=== PATIENT | male | born 1995 | race Caucasian/White ===

== ENCOUNTER 2017-05-02 14:36 | Inpatient (IN) | payer OTHER ==
[~2017-05-02] VITALS: Ht 180.3 cm; Wt 60.7 kg
[2017-05-02] MEDS ORDERED: MULT-513 PO (15:19)
[2017-05-02] MEDS ORDERED: SERT-234 PO (15:19)
[2017-05-02 15:23] LABS: BASO % 0.8 %; BASO ABS # 0.05 K/uL (0-0.2); EOS % 2.5 %; EOS ABS # 0.15 K/uL (0-0.5); HEMATOCRIT 43.7 % (42-52); HEMOGLOBIN 15.7 g/dL (14.0-18.0); IG# 0.01 K/uL (0.00-0.02); LYMPH % 30.7 %; LYMPH ABS # 1.85 K/uL (1.2-3.4); MEAN CELL VOLUME 87.1 fL (80-100); MEAN CORPUSCULAR HEMOGLOBIN 31.3 pg (25-34); MEAN CORPUSCULAR HGB CONC 35.9 g/dl (32-36); MEAN PLATELET VOLUME 9.3 fL (7.4-10.4); MONO % 4.7 %; MONO ABS # 0.28 K/uL (0.11-0.59); NEUT % 61.1 %; NEUT ABS # 3.68 K/uL (1.4-6.5); PLATELET COUNT 208 K/uL (130-400); RED CELL DISTRIBUTION WIDTH CV 13.4 % (11.5-14.5); RED CELL DISTRIBUTION WIDTH SD 42.7 fL (36.4-46.3); WHITE BLOOD COUNT 6.02 K/uL (4.8-10.8)
[2017-05-02 15:39] LABS: ALBUMIN 4.4 gm/dl (3.4-5.0); ALT/SGPT 16 U/L (12-78); BLOOD UREA NITROGEN 13 mg/dl (7-18); CALCIUM 8.9 mg/dl (8.5-10.1); CARBON DIOXIDE 29 mmol/L (21-32); CREATININE 0.92 mg/dl (0.60-1.40); GLUCOSE 91 mg/dl (70-99); SODIUM 139 mmol/L (136-145)
[2017-05-02 15:50] LABS: ALKALINE PHOSPHATASE 52 U/L (45-117); AST/SGOT 12 U/L (15-37); TOTAL PROTEIN 7.4 gm/dl (6.4-8.2)
--- NOTE | 2017-05-02 19:10 | EMERGENCY ROOM VISIT NOTE ---
History Report prepared by Henry: Dory Bryan Under the Supervision of: Kori LiO. First contact with patient: 14:46 Chief Complaint: MENTAL HEALTH EVALUATION Stated Complaint: SUICIDAL History of Present Illness The patient is a 22 year old male who presents to the Emergency Room for a mental health evaluation. The patient has a history of depression and anxiety. He takes Zoloft daily and Ativan PRN. Today he woke up this morning and was feeling very suicidal. He states that nothing specific triggered these suicidal thoughts. He does not have one specific plan but admits to thinking of multiple different ways of killing himself. He thought of driving off the road or using steak knives to harm himself. The patient has had suicidal thoughts in the past. He has been admitted as an inpatient in [facility] for psychiatric reasons. He denies any HI. He reports a mild headache for the past couple of weeks but denies any other physical complaints at this time. Pt denies change in vision, fevers, chest pain, shortness of breath, nausea, vomiting, diarrhea, pain with urination, and melena. Source of History: patient Onset: this morning Position: other (global) Quality: other (suicidal) Timing: constant Associated Symptoms: + headache, No fevers, No chest pain, No SOB, No nausea , No vomiting, No melena, No diarrhea, No urinary symptoms Note: Pt admits to SI. Pt denies HI. Review of Systems See HPI for pertinent positives & negatives. A total of 10 systems reviewed and were otherwise negative. Past Medical & Surgical Medical Problems: (1) Anxiety (2) Depression Family History No pertinent history stated. Social History Smoking Status: Former Smoker Marital Status: single Housing Status: lives with roommate Occupation Status: [employer] Current/Historical Medications Scheduled Multivitamins/Minerals (Mvi With Minerals), 1 TAB PO DAILY Sertraline (Zoloft), 150 MG PO QPM Allergies Coded Allergies: No Known Allergies (Unverified , 05/02/17) Physical Exam Vital Signs Date Time Temp Pulse Resp B/P (MAP) Pulse Ox O2 Delivery O2 Flow Rate FiO2 05/02/17 17:10 82 18 114/63 97 Room Air 05/02/17 14:42 36.8 88 17 143/95 94 Room Air Physical Exam GENERAL: Sitting up in bed, alert, well appearing, well nourished, no distress, non-toxic EYE EXAM: normal conjunctiva. OROPHARYNX: no exudate, no erythema, lips, buccal mucosa, and tongue normal and mucous membranes are moist NECK: supple, no nuchal rigidity, no adenopathy, non-tender LUNGS: Clear to auscultation. Normal chest wall mechanics HEART: no murmurs, S1 normal and S2 normal ABDOMEN: abdomen soft, non-tender, normo-active bowel sounds, no masses, no rebound or guarding. SKIN: no rashes and no bruising UPPER EXTREMITIES: upper extremities are grossly normal. LOWER EXTREMITIES: No pitting edema. NEURO EXAM: Normal sensorium, cranial nerves II-XII grossly intact, normal speech, no gross weakness of arms, no gross weakness of legs. PSYCH: Admits to suicidal ideation with a plan. Medical Decision & Procedures Laboratory Results 05/02/17 14:58 Red Blood Count 5.02, Mean Corpuscular Volume 87.1, Mean Corpuscular Hemoglobin 31.3, Mean Corpuscular Hemoglobin Concent 35.9, Mean Platelet Volume 9.3, Neutrophils (%) (Auto) 61.1, Lymphocytes (%) (Auto) 30.7, Monocytes (%) (Auto) 4.7, Eosinophils (%) (Auto) 2.5, Basophils (%) (Auto) 0.8, Neutrophils # (Auto) 3.68, Lymphocytes # (Auto) 1.85, Monocytes # (Auto) 0.28, Eosinophils # (Auto) 0.15, Basophils # (Auto) 0.05 05/02/17 14:58 Test 05/02/17 14:58 05/02/17 15:10 White Blood Count 6.02 K/uL (4.8-10.8) Red Blood Count 5.02 M/uL (4.7-6.1) Hemoglobin 15.7 g/dL (14.0-18.0) Hematocrit 43.7 % (42-52) Mean Corpuscular Volume 87.1 fL (80-100) Mean Corpuscular Hemoglobin 31.3 pg (25-34) Mean Corpuscular Hemoglobin Concent 35.9 g/dl (32-36) Platelet Count 208 K/uL (130-400) Mean Platelet Volume 9.3 fL (7.4-10.4) Neutrophils (%) (Auto) 61.1 % Lymphocytes (%) (Auto) 30.7 % Monocytes (%) (Auto) 4.7 % Eosinophils (%) (Auto) 2.5 % Basophils (%) (Auto) 0.8 % Neutrophils # (Auto) 3.68 K/uL (1.4-6.5) Lymphocytes # (Auto) 1.85 K/uL (1.2-3.4) Monocytes # (Auto) 0.28 K/uL (0.11-0.59) Eosinophils # (Auto) 0.15 K/uL (0-0.5) Basophils # (Auto) 0.05 K/uL (0-0.2) RDW Standard Deviation 42.7 fL (36.4-46.3) RDW Coefficient of Variation 13.4 % (11.5-14.5) Immature Granulocyte % (Auto) 0.2 % Immature Granulocyte # (Auto) 0.01 K/uL (0.00-0.02) Anion Gap 6.0 mmol/L (3-11) Est Creatinine Clear Calc Drug Dose 110.4 ml/min Estimated GFR () 136.4 Estimated GFR (Non- 117.6 BUN/Creatinine Ratio 13.9 (10-20) Calcium Level 8.9 mg/dl (8.5-10.1) Total Bilirubin 0.4 mg/dl (0.2-1) Direct Bilirubin < 0.1 mg/dl (0-0.2) Aspartate Amino Transf (AST/SGOT) 12 U/L (15-37) Alanine Aminotransferase (ALT/SGPT) 16 U/L (12-78) Alkaline Phosphatase 52 U/L (45-117) Total Protein 7.4 gm/dl (6.4-8.2) Albumin 4.4 gm/dl (3.4-5.0) Thyroid Stimulating Hormone (TSH) 0.910 uIu/ml (0.300-4.500) Ethyl Alcohol mg/dL < 3.0 mg/dl (0-3) Urine Color YELLOW Urine Appearance CLEAR (CLEAR) Urine pH 7.5 (4.5-7.5) Urine Specific [place] 1.024 (1.000-1.030) Urine Protein NEG (NEG) Urine Glucose (UA) NEG (NEG) Urine Ketones NEG (NEG) Urine Occult Blood NEG (NEG) Urine Nitrite NEG (NEG) Urine Bilirubin NEG (NEG) Urine Urobilinogen NEG (NEG) Urine Leukocyte Esterase NEG (NEG) Urine Opiates Screen NEG (NEG) Urine Methadone, Qualitative NEG (NEG) Urine Barbiturates NEG (NEG) Urine Phencyclidine (PCP) Level NEG (NEG) Ur Amphetamine/Methamphetamine NEG (NEG) MDMA (Ecstasy) Screen NEG (NEG) Urine Benzodiazepines Screen NEG (NEG) Urine Cocaine Metabolite NEG (NEG) Urine Marijuana (THC) POS (NEG) Laboratory results per my review. ED Course ED COURSE: Vital signs were reviewed and showed hypertensive. The patients medical record was reviewed The above diagnostic studies were performed and reviewed. ED treatments and interventions as stated above. 1446: The patient was evaluated in room A4B. A complete history and physical examination was performed. 1455: The patient was moved to room A8. 1930: The patient has been accepted to [facility] for further management. Medical Decision Differential diagnosis: Etiologies such as mood disorder, infection, hypoglycemia, electrolyte abnormalities, cardiac sources, intracerebral event, toxicologic, neurologic, as well as others were entertained. Patient is a 22-year-old male with a history of severe depression who presents the ER with suicidal ideations and a plan to kill himself either by driving in the traffic or cutting his wrists. He has no other complaints at this time with the exception of a mild headache. CBC along with BMP, LFTs, bilirubin and TSH was unremarkable. Tox was positive for marijuana. Alcohol negative. UA negative. Patient was evaluated by our psychiatric infant childcare provider in 3 S. Patient will be admitted to S. on a 201. Medication Reconcilliation Current Medication List: was personally reviewed by me Blood Pressure Screening Patient's blood pressure: Elevated blood pressure Blood pressure disposition: Elevated BP felt to be situational Impression Primary Impression: Mood disorder Additional Impression: Suicidal ideation Scribe Attestation The scribe's documentation has been prepared under my direction and personally reviewed by me in its entirety. I confirm that the note above accurately reflects all work, treatment, procedures, and medical decision making performed by me. Departure Information Dispostion Mental Health Acute Care Referrals No Doctor, Assigned (PCP) Forms HOME CARE DOCUMENTATION FORM, IMPORTANT VISIT INFORMATION Patient Instructions My [facility] Problem Qualifiers
[2017-05-02] MEDS ORDERED: NURSING VERBAL MED ORDER ONE (20:45)
[2017-05-02] MEDS ORDERED: BISMUTH SUBSALICYLATE PER ML OMNICELL CHARGE PO PRN (21:00)
[2017-05-02] MEDS ORDERED: ACETAMINOPHEN 325 MG TAB PO PRN (21:00)
[2017-05-02] MEDS ORDERED: SODIUM CHLORIDE 0.65% NA SOLN 45 ML (OCEAN) PRN (21:00)
[2017-05-02] MEDS ORDERED: ALUMINUM/MAGNESIUM SUSP 30 ML UDC PO PRN (21:00)
[2017-05-02] MEDS ORDERED: MAGNESIUM HYDROXIDE SUSP 30 ML UDC PO PRN (21:00)
[2017-05-02] MEDS ORDERED: hydrOXYzine HCL 25 MG TAB PO PRN ×2 (21:00)
[2017-05-02 21:24] VITALS: O2SAT 97
[2017-05-03 00:32] VITALS: BP 114/63; PULSE 82; TEMP 36.8; Ht 180.3 cm; Wt 60.7 kg
[2017-05-03 06:35] VITALS: BP_SYST 100; BP_SYST 108; BP_DIAS 65; BP_DIAS 74; PULSE 66; PULSE 85; TEMP 36.4
[2017-05-03] MEDS ORDERED: SERTRALINE HCL 100 MG TAB PO SCH (09:00)
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
[2017-05-03] MEDS ORDERED: VENLAFAXINE HCL XR 37.5 MG CAPXR PO ONE (11:58)
[2017-05-04 06:52] VITALS: BP_SYST 104; BP_SYST 111; BP_DIAS 63; BP_DIAS 72; PULSE 64; PULSE 94; TEMP 36.5
[2017-05-04] MEDS: VENLAFAXINE HCL XR 37.5 MG CAPXR PO SCH (08:05)
[2017-05-04] MEDS: SERTRALINE HCL 50 MG TAB PO SCH (08:05)
--- NOTE | 2017-05-04 11:15 | Psychiatric Progress Notes ---
Progress Note Date of Service May 04, 2017. 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 He who currently lives in [place] with roommate. Chief Complaint "Looking up". Subjective Patient was seen & assessed interval progress reviewed with Nursing. Staff report patient had a visit from a friend last evening, attended community meeting, and has a family meeting scheduled with his mother this afternoon. His mother reported to staff that he has been depressed off and on for years. On my assessment, the patient states that mood has improved slightly since admission, and he thinks it is helping to be around other people and to talk about his issues. He states that his tendency is to isolate when he is feeling depressed, that he does not usually discuss his mood with anyone. He continues to have suicidal thoughts, but describes them as fleeting, "they just pop into my head," and feels better able to dismiss them or distract himself. He thinks it has been helpful to "put into words" what he has been struggling with over the past several months, noting that he has been taking poor care of himself all semester, not eating until 6:00 at night, and struggling to get out of bed, shower and get dressed. This morning he woke up and "did not want to go right back to sleep, which is a first." He notes that yesterday was very difficult, "it was really hard, felt really alone," but is feeling slightly more optimistic today. Appetite has also improved slightly. Sleep Information Total Hours of Sleep: 7.25 Meal Information Percent of Breakfast Consumed: 50 Percent of Lunch Consumed: 50 Percent of Dinner Consumed: 50 Mental Status Exam During interview pt is: alert and oriented, cooperative Appearance: appropriately dressed, appropriately groomed (Thin) Eye contact is: good Motor behavior is: steady gait & station, no abnormal motor movements Speech: normal in rate, rhythm & volume Affect: mood congruent, depressed, constricted Mood is: depressed (but improved from yesterday) Thought process: goal directed Thought content: reality based without delusions Suicidal thought are: present, Plan: present, Intent: denied Homicidal thoughts are: denied Hallucinations: denies auditory, denies visual Cognition: memory grossly intact, attention grossly intact, language grossly intact Intelligence estimated to be: consistent with level of education Insight: fair Judgement: fair Impression 22-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 He is admitted with worsening depression and suicidal ideation with multiple plans. He is being cross tapered to venlafaxine XR, and would benefit from outpatient follow- up with a psychiatrist and therapist. He requires inpatient treatment at this time due to the severity of his symptoms and risk for suicide if discharged. Plan (1) Depression 05/03 -Reviewed diagnoses and treatment options. Recommended trial of venlafaxine XR , as he has failed 2 SSRI trials (presuming his first antidepressant trial was in [place]). Reviewed the risks, benefits, and side effects, and recommendations to cross taper from sertraline to venlafaxine, and he agreed. Sertraline dose was decreased to 100 mg daily this morning, and we will taper off this over the next several days, while starting venlafaxine XR 37.5 mg daily. -Offer hydroxyzine as needed for sleep or anxiety. -Participation in unit groups and therapy. Work on healthy coping skills and a discharge safety plan. -Reviewed recommendations to abstain from psychoactive substance use including cannabis at least until mood has stabilized, and the risks of ongoing use. -Recommend family meeting with the social media content manager. -Coordinate care with PCP and send records. Refer for outpatient follow-up with a therapist and psychiatrist. -Every 15 minute checks for safety. 05/04 - Continue cross taper as above. - Family meeting with mother this afternoon. - Referred to [facility] for aftercare. (2) Anxiety Has symptoms of both generalized anxiety and panic, which appear to be secondary to his depression. Work on behavioral techniques for managing anxiety. Cross-taper from sertraline to venlafaxine XR as above. Discharge / Aftercare Planning Primary Care Physician: Name: PEDRO Rock Psychiatrist: Name: FAISAL Appointment Notes: [address] [place] [address] Therapist: Name: FAISAL Appointment Notes: [address] [place] [address] [place] Auditor: Name: Tiffanie Umanzor CAPS Appointment Notes: [facility] Visit Code E&M Code: 81212 Inventory Assets Strengths: intelligence, supportive family Needs: mental health providers, medication adjustments Risk Factors Assessment Male: Yes : Yes /single/: Yes Higher / Fall in social status: No Health problems: No Mental Health Diagnoses: Yes Substance use disorders: Yes Previous attempt: Yes Previous attempt;highly lethal: Yes Family history of suicide: No Previous psychiatric stay: No Hopelessness: Yes Smoker: No Protective Factors Assessment Confucianism beliefs: No : No Responsible for young children: No Employed: No Stable relationships: Yes Supportive family: Yes Good rapport with provider: Yes Data Vital Signs Last 24 Hrs: Date Time Temp Pulse Resp B/P (MAP) Pulse Ox O2 Delivery O2 Flow Rate FiO2 05/04/17 06:52 36.5 64 16 104/63 94 111/72 Meds Administered Last 24 Hrs: Meds Administered (Past 24Hrs) Medications (Trade) Dose Ordered Sig/Edvin Route Start Time Stop Time Status Last Admin Dose Admin Sertraline HCl (Zoloft Tab) 100 mg DAILY PO 05/03/17 09:00 05/03/17 12:00 DC 05/03/17 08:49 100 MG Sertraline HCl (Zoloft Tab) 50 mg Taper QAM PO 05/04/17 09:00 05/08/17 08:59 05/04/17 08:05 50 MG Venlafaxine HCl (effeXOR EXTENDED REL CAP) 37.5 mg Taper QAM PO 05/04/17 09:00 06/02/17 08:59 05/04/17 08:05 37.5 MG Venlafaxine HCl (effeXOR EXTENDED REL CAP) 37.5 mg 1158 ONCE PO 05/03/17 11:58 05/03/17 12:07 DC 05/03/17 12:42 37.5 MG Problem Qualifiers (1) Depression: Depression Type: major depressive disorder Major depression recurrence: recurrent Active/Remission status: currently active Major depression episode severity: severe Psychotic features: without psychotic features Qualified Codes: F33.2 - Major depressive disorder, recurrent severe without psychotic features
[2017-05-05 06:48] VITALS: BP_SYST 102; BP_SYST 99; BP_DIAS 61; BP_DIAS 67; PULSE 64; PULSE 71; TEMP 36.4
[2017-05-05] MEDS: VENLAFAXINE HCL XR 37.5 MG CAPXR PO SCH (08:39)
[2017-05-05] MEDS: SERTRALINE HCL 50 MG TAB PO SCH (08:39)
--- NOTE | 2017-05-05 10:24 | Psych Management Progress Note ---
Psychiatry Miscellaneous Date of Service: May 05, 2017. Patient seen, MS assessed. Rates mood as 7/10 and hopeful. Encouraged cooperation with care and treatment plan as outlined by allied health prescriber. He feels he is nearing readiness for discharge, discussed working on safety plan and his plan to structure his day as staff report he still describes fleeting suicidal thoughts last pm.
--- NOTE | 2017-05-05 10:59 | Psychiatric Progress Notes ---
Progress Note Date of Service May 05, 2017. 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 He who currently lives in [place] with roommate. Chief Complaint "I think I'm doing a lot better than when I first got here". Subjective Patient was seen & assessed interval progress reviewed with Treatment Team. Staff reports the patient had a family meeting with mother yesterday which went well. Pt and mother both agree that current mood symptoms are likely situation and related to patient's graduation. Pt is reported to have emailed his professors yesterday to determine if his final semester is salvageable. Pt was seen today to assess progress since admission. Pt states he has noticed a difference and feels that his is improving. Pt states, "being here has given me a lot of perspective, I knew I wasn't functioning, but just didn't care." Pt was able to clarify reports of ongoing SI and describes them as "retrospective SI" stating he thinks back to previous suicidal thoughts on occasion, but is able to dismiss them. Pt states he has completed his safety plan and is planning to work on a schedule so he can better plan his weeks with regard to completing school work and keeping up with his apartment. Pt is anxious for discharge, but is understanding of need to continue to monitor during medication taper and to ensure that his improvement is able to be maintained. Pt denies SI today. He denies other concerns or needs. Review of Systems Psych: denies symptoms other than stated above Constitutional: denied Cardiovascular: denied GI: denied Neurologic: denied Remainder of 10 body systems also reviewed and denied other than noted above. Sleep Information Total Hours of Sleep: 7.00 Meal Information Percent of Breakfast Consumed: 100 Percent of Lunch Consumed: 100 Percent of Dinner Consumed: 100 Mental Status Exam During interview pt is: alert and oriented, cooperative Appearance: appropriately dressed, appropriately groomed Eye contact is: good Motor behavior is: steady gait & station, no abnormal motor movements Speech: normal in rate, rhythm & volume Affect: mood congruent, blunted (but less depressed) Mood is: other ("better" and "I'm more positive") Thought process: goal directed, clear, coherent Thought content: reality based without delusions Suicidal thought are: denied ("retrospective SI"), Plan: present, Intent: denied Homicidal thoughts are: denied Hallucinations: denies auditory, denies visual Cognition: memory grossly intact, attention grossly intact, language grossly intact Intelligence estimated to be: consistent with level of education Insight: fair Judgement: fair Impression Pt has noticed improvement in mood and outlook in the last few days. He denies side effects from taper from sertraline to venlafaxine. Pt feels more positive and has been setting goals for discharge. Safety plan is completed and reviewed. Discharge planned for Monday, but patient interested in leaving sooner. Understands need to monitor to ensure stability of improvement and tolerating new medication. Current SI denied, describes fleeting thoughts of "retrospective suicidal thoughts" in which he thinks back to his feelings prior to admission. States he can easily dismiss. He requires inpatient treatment at this time due to the severity of his symptoms and risk for suicide if discharged. Plan (1) Depression 05/03 -Reviewed diagnoses and treatment options. Recommended trial of venlafaxine XR , as he has failed 2 SSRI trials (presuming his first antidepressant trial was in SSRI). Reviewed the risks, benefits, and side effects, and recommendations to cross taper from sertraline to venlafaxine, and he agreed. Sertraline dose was decreased to 100 mg daily this morning, and we will taper off this over the next several days, while starting venlafaxine XR 37.5 mg daily. -Offer hydroxyzine as needed for sleep or anxiety. -Participation in unit groups and therapy. Work on healthy coping skills and a discharge safety plan. -Reviewed recommendations to abstain from psychoactive substance use including cannabis at least until mood has stabilized, and the risks of ongoing use. -Recommend family meeting with the social work assistant. -Coordinate care with PCP and send records. Refer for outpatient follow-up with a therapist and psychiatrist. -Every 15 minute checks for safety. 05/04 - Continue cross taper as above. - Family meeting with mother this afternoon. - Referred to [facility] for aftercare. 05/05 - Continue cross taper - Good family meeting with mother - Safety plan completed and reviewed (2) Anxiety Has symptoms of both generalized anxiety and panic, which appear to be secondary to his depression. Work on behavioral techniques for managing anxiety. Cross-taper from sertraline to venlafaxine XR as above. Discharge / Aftercare Planning Primary Care Physician: Name: PEDRO Rock Psychiatrist: Name: FAISAL Appointment Notes: [facility] Therapist: Name: FAISAL Appointment Notes: [facility] Project Officer: Name: Tiffanie Manjarrez - FAISAL Appointment Notes: [facility] Other: Name of Appointment #1: [facility] Date of Appointment #1: May 10, 2017 Time of Appointment #1: 11:00 a.m. Appointment #1 Notes: [address] [place] [address] Visit Code E&M Code: 09328 Inventory Assets Strengths: intelligence, supportive family Needs: mental health providers, medication adjustments Risk Factors Assessment Male: Yes : Yes /single/: Yes Higher / Fall in social status: No Health problems: No Mental Health Diagnoses: Yes Substance use disorders: Yes Previous attempt: Yes Previous attempt;highly lethal: Yes Family history of suicide: No Previous psychiatric stay: No Hopelessness: Yes Smoker: No Protective Factors Assessment Zoroastrianism beliefs: No : No Responsible for young children: No Employed: No Stable relationships: Yes Supportive family: Yes Good rapport with provider: Yes Data Vital Signs Last 24 Hrs: Date Time Temp Pulse Resp B/P (MAP) Pulse Ox O2 Delivery O2 Flow Rate FiO2 05/05/17 06:48 36.4 64 16 102/67 71 99/61 Meds Administered Last 24 Hrs: Meds Administered (Past 24Hrs) Medications (Trade) Dose Ordered Sig/Edvin Route Start Time Stop Time Status Last Admin Dose Admin Sertraline HCl (Zoloft Tab) 50 mg Taper QAM PO 05/04/17 09:00 05/08/17 08:59 05/05/17 08:39 50 MG Venlafaxine HCl (effeXOR EXTENDED REL CAP) 75 mg Taper QAM PO 05/04/17 09:00 06/02/17 08:59 05/05/17 08:39 75 MG Venlafaxine HCl (effeXOR EXTENDED REL CAP) 37.5 mg 1158 ONCE PO 05/03/17 11:58 05/03/17 12:07 DC 05/03/17 12:42 37.5 MG Problem Qualifiers (1) Depression: Depression Type: major depressive disorder Major depression recurrence: recurrent Active/Remission status: currently active Major depression episode severity: severe Psychotic features: without psychotic features Qualified Codes: F33.2 - Major depressive disorder, recurrent severe without psychotic features
[2017-05-06 06:25] VITALS: BP_SYST 121; BP_SYST 124; BP_DIAS 84; BP_DIAS 86; PULSE 67; PULSE 76; TEMP 36.5
[2017-05-06] MEDS: VENLAFAXINE HCL XR 37.5 MG CAPXR PO SCH (08:44)
[2017-05-06] MEDS: SERTRALINE HCL 50 MG TAB PO SCH (08:44)
[2017-05-06] MEDS ORDERED: VENLAFAXINE HCL XR 150 MG CAPXR PO STA (10:33)
[2017-05-06] MEDS ORDERED: VENLAFAXINE HCL XR 37.5 MG CAPXR PO STA (10:48)
--- NOTE | 2017-05-06 10:56 | Psychiatric Progress Notes ---
Progress Note Date of Service May 06, 2017. 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 He who currently lives in [place] with roommate. Chief Complaint "It going better.". Subjective Patient was seen & assessed interval progress reviewed with Treatment Team. The patient says that he has been thinking a lot about what is different from prior to admission and he says that he now has "regained a sense of care about myself". Prior to admission, he knew what he had to do, but was too depressed to motivate himself to those things. He now feels the motivation to get home, clean up his room and return to classes. He remains hopeful that he will be able to make up enough work to graduate this semester. He denies any further SI , denies side effects to meds. He feels like he is ready to leave and is asking how soon that can happen as he has a [employer] meeting Monday that he would like to attend. Review of Systems Constitutional: No fever, No chills, No sweats, No weight loss, No weakness, No fatigue, No problem reported ENT: No hearing loss, No unusual epistaxis, No nasal symptoms, No sore throat, No tinnitus, No dental problems, No trouble swallowing, No problem reported Respiratory: No cough, No sputum, No wheezing, No shortness of breath, No dyspnea on exertion, No dyspnea at rest, No hemoptysis, No problem reported Cardiovascular: No chest pain, No orthopnea, No PND, No edema, No claudication , No palpitations, No problem reported Abdomen: No pain, No nausea, No vomiting, No diarrhea, No constipation, No GI bleeding, No problem reported Musculoskeletal: No joint pain, No muscle pain, No swelling, No calf pain, No problem reported Neurologic: No memory loss, No paralysis, No weakness, No numbness/tingling, No vertigo, No balance problems, No problem reported Psychiatric: No depression symptoms, No anhedonism, No anxiety, No insomnia, No substance abuse, No problem reported Integumentary: No rash, No itch, No new/changing skin lesions, No color change , No bleeding, No problem reported Sleep Information Total Hours of Sleep: 6.25 Meal Information Percent of Breakfast Consumed: 100 Percent of Lunch Consumed: 100 Percent of Dinner Consumed: 100 Mental Status Exam During interview pt is: alert and oriented, cooperative Appearance: appropriately dressed, appropriately groomed Eye contact is: good Motor behavior is: steady gait & station, no abnormal motor movements Speech: normal in rate, rhythm & volume Affect: mood congruent, blunted (but less depressed) Mood is: other ("Its going better.") Thought process: goal directed, clear, coherent Thought content: reality based without delusions Suicidal thought are: denied, Plan: denied, Intent: denied Homicidal thoughts are: denied Hallucinations: denies auditory, denies visual Cognition: memory grossly intact, attention grossly intact, language grossly intact Intelligence estimated to be: consistent with level of education Insight: fair Judgement: fair Impression Progress continues, mood improved. Will finish out cross taper today increasing Effexor to 150 mg. and DC Zoloft. If progress continues, could consider discharge as soon as tomorrow. Plan (1) Depression 05/03 -Reviewed diagnoses and treatment options. Recommended trial of venlafaxine XR , as he has failed 2 SSRI trials (presuming his first antidepressant trial was in SS[place]). Reviewed the risks, benefits, and side effects, and recommendations to cross taper from sertraline to venlafaxine, and he agreed. Sertraline dose was decreased to 100 mg daily this morning, and we will taper off this over the next several days, while starting venlafaxine XR 37.5 mg daily. -Offer hydroxyzine as needed for sleep or anxiety. -Participation in unit groups and therapy. Work on healthy coping skills and a discharge safety plan. -Reviewed recommendations to abstain from psychoactive substance use including cannabis at least until mood has stabilized, and the risks of ongoing use. -Recommend family meeting with the social group worker. -Coordinate care with PCP and send records. Refer for outpatient follow-up with a therapist and psychiatrist. -Every 15 minute checks for safety. 05/04 - Continue cross taper as above. - Family meeting with mother this afternoon. - Referred to [facility] for aftercare. 05/05 - Continue cross taper - Good family meeting with mother - Safety plan completed and reviewed (2) Anxiety Has symptoms of both generalized anxiety and panic, which appear to be secondary to his depression. Work on behavioral techniques for managing anxiety. Cross-taper from sertraline to venlafaxine XR as above. Discharge / Aftercare Planning Primary Care Physician: Name: PEDRO Rock Psychiatrist: Name: Corie FAISAL Espinoza Date of Appointment: May 26, 2017 Appointment Notes: [facility] Therapist: Name: Darnell FAISAL Brewer Date of Appointment: May 10, 2017 Time of Appointment: 1pm Appointment Notes: [address] [place] [address] Neuro Psych Sales Specialist: Name: Tiffanie Manjarrez - CAPS Appointment Notes: [address] [place] [address] Other: Name of Appointment #1: [facility] [place] Date of Appointment #1: May 10, 2017 Time of Appointment #1: 11:00 a.m. Appointment #1 Notes: [address] [place] [address] Visit Code E&M Code: 31578 Inventory Assets Strengths: intelligence, supportive family Needs: mental health providers, medication adjustments Risk Factors Assessment Male: Yes : Yes /single/: Yes Higher / Fall in social status: No Health problems: No Mental Health Diagnoses: Yes Substance use disorders: Yes Previous attempt: Yes Previous attempt;highly lethal: Yes Family history of suicide: No Previous psychiatric stay: No Hopelessness: Yes Smoker: No Protective Factors Assessment Roman Catholic beliefs: No : No Responsible for young children: No Employed: No Stable relationships: Yes Supportive family: Yes Good rapport with provider: Yes Data Vital Signs Last 24 Hrs: Date Time Temp Pulse Resp B/P (MAP) Pulse Ox O2 Delivery O2 Flow Rate FiO2 05/06/17 06:25 36.5 67 16 121/86 76 124/84 Meds Administered Last 24 Hrs: Current Inpatient Medications Medications (Trade) Dose Ordered Sig/Edvin Route Start Time Stop Time Status Last Admin Dose Admin Acetaminophen (Tylenol Tab) 650 mg Q4H PRN PO 05/02/17 21:00 06/01/17 20:59 Bismuth Subsalicylate (Kaopectate Liqd) 15 ml PRN PRN PO 05/02/17 21:00 06/01/17 20:59 Al Hydroxide/Mg Hydroxide (Maalox Susp) 30 ml Q4H PRN PO 05/02/17 21:00 06/01/17 20:59 Magnesium Hydroxide (Milk Of Magnesia Susp) 30 ml DAILY PRN PO 05/02/17 21:00 06/01/17 20:59 Sodium Chloride ([place] Nasal [place]) PRN PRN NA 05/02/17 21:00 06/01/17 20:59 Hydroxyzine HCl (Vistaril Tab) 50 mg HSZ PRN PO 05/02/17 21:00 06/01/17 20:59 Hydroxyzine HCl (Vistaril Tab) 25 mg Q4H PRN PO 05/02/17 21:00 06/01/17 20:59 Venlafaxine HCl (effeXOR EXTENDED REL CAP) 150 mg QAM PO 05/07/17 09:00 06/06/17 08:59 Lab Results Last 24 Hrs: 05/02/17 14:58 Red Blood Count 5.02, Mean Corpuscular Volume 87.1, Mean Corpuscular Hemoglobin 31.3, Mean Corpuscular Hemoglobin Concent 35.9, Mean Platelet Volume 9.3, Neutrophils (%) (Auto) 61.1, Lymphocytes (%) (Auto) 30.7, Monocytes (%) (Auto) 4.7, Eosinophils (%) (Auto) 2.5, Basophils (%) (Auto) 0.8, Neutrophils # (Auto) 3.68, Lymphocytes # (Auto) 1.85, Monocytes # (Auto) 0.28, Eosinophils # (Auto) 0.15, Basophils # (Auto) 0.05 05/02/17 14:58 Test 05/02/17 14:58 05/02/17 15:10 White Blood Count 6.02 K/uL (4.8-10.8) Red Blood Count 5.02 M/uL (4.7-6.1) Hemoglobin 15.7 g/dL (14.0-18.0) Hematocrit 43.7 % (42-52) Mean Corpuscular Volume 87.1 fL (80-100) Mean Corpuscular Hemoglobin 31.3 pg (25-34) Mean Corpuscular Hemoglobin Concent 35.9 g/dl (32-36) Platelet Count 208 K/uL (130-400) Mean Platelet Volume 9.3 fL (7.4-10.4) Neutrophils (%) (Auto) 61.1 % Lymphocytes (%) (Auto) 30.7 % Monocytes (%) (Auto) 4.7 % Eosinophils (%) (Auto) 2.5 % Basophils (%) (Auto) 0.8 % Neutrophils # (Auto) 3.68 K/uL (1.4-6.5) Lymphocytes # (Auto) 1.85 K/uL (1.2-3.4) Monocytes # (Auto) 0.28 K/uL (0.11-0.59) Eosinophils # (Auto) 0.15 K/uL (0-0.5) Basophils # (Auto) 0.05 K/uL (0-0.2) RDW Standard Deviation 42.7 fL (36.4-46.3) RDW Coefficient of Variation 13.4 % (11.5-14.5) Immature Granulocyte % (Auto) 0.2 % Immature Granulocyte # (Auto) 0.01 K/uL (0.00-0.02) Anion Gap 6.0 mmol/L (3-11) Est Creatinine Clear Calc Drug Dose 110.4 ml/min Estimated GFR () 136.4 Estimated GFR (Non- 117.6 BUN/Creatinine Ratio 13.9 (10-20) Calcium Level 8.9 mg/dl (8.5-10.1) Total Bilirubin 0.4 mg/dl (0.2-1) Direct Bilirubin < 0.1 mg/dl (0-0.2) Aspartate Amino Transf (AST/SGOT) 12 U/L (15-37) Alanine Aminotransferase (ALT/SGPT) 16 U/L (12-78) Alkaline Phosphatase 52 U/L (45-117) Total Protein 7.4 gm/dl (6.4-8.2) Albumin 4.4 gm/dl (3.4-5.0) Thyroid Stimulating Hormone (TSH) 0.910 uIu/ml (0.300-4.500) Ethyl Alcohol mg/dL < 3.0 mg/dl (0-3) Urine Color YELLOW Urine Appearance CLEAR (CLEAR) Urine pH 7.5 (4.5-7.5) Urine Specific [place] 1.024 (1.000-1.030) Urine Protein NEG (NEG) Urine Glucose (UA) NEG (NEG) Urine Ketones NEG (NEG) Urine Occult Blood NEG (NEG) Urine Nitrite NEG (NEG) Urine Bilirubin NEG (NEG) Urine Urobilinogen NEG (NEG) Urine Leukocyte Esterase NEG (NEG) Urine Opiates Screen NEG (NEG) Urine Methadone, Qualitative NEG (NEG) Urine Barbiturates NEG (NEG) Urine Phencyclidine (PCP) Level NEG (NEG) Ur Amphetamine/Methamphetamine NEG (NEG) MDMA (Ecstasy) Screen NEG (NEG) Urine Benzodiazepines Screen NEG (NEG) Urine Cocaine Metabolite NEG (NEG) Urine Marijuana (THC) POS (NEG) Urine Marijuana (THC Carboxy Acid) 339 NG/ML (CUTOFF=5) Problem Qualifiers (1) Depression: Depression Type: major depressive disorder Major depression recurrence: recurrent Active/Remission status: currently active Major depression episode severity: severe Psychotic features: without psychotic features Qualified Codes: F33.2 - Major depressive disorder, recurrent severe without psychotic features
[2017-05-07 06:31] VITALS: BP_SYST 109; BP_SYST 96; BP_DIAS 61; BP_DIAS 74; PULSE 106; PULSE 76; TEMP 36.6
[2017-05-07] MEDS ORDERED: EFFSR150 PO (09:00)
[2017-05-07] MEDS ORDERED: VENLAFAXINE HCL XR 150 MG CAPXR PO SCH ×2 (09:00→09:45)
--- NOTE | 2017-05-07 09:11 | Discharge Instructions ---
Discharge Information Report Includes Report will include the: Discharge Instructions & Summary Admission Admission Date / Time: May 02, 2017 at 20:58 Reason for Admission: Depression Discharge Discharge Diagnosis / Problem: Depression Condition at Discharge: Good Discharge Goals Goal(s): Decrease discomfort, Improve disease control Activity Recommendations Activity Limitations: resume your previous activity . Instructions / Follow-Up Instructions / Follow-Up . SPECIAL CARE INSTRUCTIONS: 1. Follow through with your scheduled aftercare appointments. If unable to keep an appointment, please call to reschedule. 2. Take your medication only as prescribed. Medication should not be changed or stopped without the approval of your doctor. In the event of worsening symptoms or concerns about side effects, contact your doctor immediately. 3. Utilize new healthy coping skills, anger management skills, and stress management skills learned during your hospitalization. Journal feelings and process them with a support person. Identify stressors or situations that may result in relapse, deterioration or inappropriate behaviors and develop a plan to deal with those issues. 4. If your coping skills are ineffective and you are in crisis, contact your outpatient providers for direction. If unable to reach your providers, please call the CAN HELP LINE AT or go to the closest Emergency Room. 5. Avoid alcohol and un-prescribed drugs. 6. You have been provided with the Mental Health Advance Directives Pamphlet for your review. AFTERCARE APPOINTMENTS: * Please call your insurance company prior to your scheduled appointment to confirm your aftercare providers are covered. Take your insurance information to your appointments. . Discharge / Aftercare Planning Primary Care Physician: Name: [place] Appointment Notes: As needed Psychiatrist: Name: Corie Espinoza [facility] Date of Appointment: May 26, 2017 Appointment Notes: [address] [place] [address] Therapist: Name Of Therapist: Darnell Brewer [facility] Date of Appointment: May 10, 2017 Time of Appointment: 1pm Appointment Comments: [address] [place] [address] Repairer Cylinder Heads: Name: Tiffanie Umanzor [facility] Appointment Notes: As needed Other: Name of Appointment #1: [facility] Date of Appointment #1: May 10, 2017 Time of Appointment #1: 11:00 a.m. Appointment #1 Notes: [address] [place] [address] . Follow-Up Care Plan for Follow-Up Care: The patient will have psychiatric follow up care at [facility] Current Hospital Diet Patient's current hospital diet: Regular Diet Discharge Diet Recommended Diet: Regular Diet Procedures Procedures Performed: No Pending Studies Pending Studies at Discharge: No Medical Emergencies . Who to Call and When: Medical Emergencies: For questions or emergencies related to your hospital stay, please contact the Inpatient Behavioral Health Unit at [phone]. A lens inserter is on-call 05/09 for the Behavioral Health Unit for emergencies At any time you feel your situation is an emergency, you may also call 911 immediately. . Non-Emergent Contact Non-Emergency issues call your: Psychiatrist, Therapist Past History Medical & Surgical History: (1) No active medical problems Advance Directives Existing Advance Directive: No Do You Have an Existing Mental: No Existing Living Will: No Existing Power of Airflight Attendants Supervisor: No Advance Directives Info Given: To Pt/S.O. Advance Directives Reason: Declines as Mental Health Visit. Discharge Summary Admission HPI Per the Admitting provider: Patient presented to the emergency room last evening with worsening depression and suicidal thoughts. He reported thinking of multiple different ways to kill himself, including driving off the road or using steak knives to stab himself. He reported active depressive symptoms for several years, and is prescribed sertraline by his PCP in [place]. He attempted to get an appointment at [facility], but they could not see him until next week, so called his PCP who advised he go to the hospital. The patient was seen with Lisa [facility] MS[facility]. He reports a history of depression and anxiety diagnosed in 10th grade. He was prescribed an initial unknown antidepressant that was ineffective so it was stopped, and was then started on sertraline by his PCP Dr. Stewart in [place]. He thinks he has been on it for 2 -3 years, and although it has helped some with "willingness to go through every day life," his mood remains depressed. He reports persistently low mood since 10th grade, and recently mood has worsened, with low appetite, low energy, poor focus, poor sleep, anhedonia, worthlessness, irritability, hopelessness, and psychomotor retardation. He has been performing poorly in school, has all C's whereas he normally gets A's and B's, and worries that this could jeopardize his graduation this spring. He is not sure what he wants to do after graduation. He woke up yesterday with suicidal thoughts, described "visions of me crashing my car in steak knives." He scored a 23 on the PHQ-9. He also reports worsening anxiety with excessive worry, headaches, and has had 1-2 panic attacks a month with tachycardia, hyperventilation, and sweating. Denies significant distress or avoidance due to them. He is prescribed lorazepam prn, and takes it approximately once a month. He denies symptoms of marcella, psychosis , OCD and PTSD symptoms. His goals of treatment are to regain control over his life and improve focus. Hospital Course (1) Depression 05/03 -Reviewed diagnoses and treatment options. Recommended trial of venlafaxine XR , as he has failed 2 SSRI trials (presuming his first antidepressant trial was in SSRI). Reviewed the risks, benefits, and side effects, and recommendations to cross taper from sertraline to venlafaxine, and he agreed. Sertraline dose was decreased to 100 mg daily this morning, and we will taper off this over the next several days, while starting venlafaxine XR 37.5 mg daily. -Offer hydroxyzine as needed for sleep or anxiety. -Participation in unit groups and therapy. Work on healthy coping skills and a discharge safety plan. -Reviewed recommendations to abstain from psychoactive substance use including cannabis at least until mood has stabilized, and the risks of ongoing use. -Recommend family meeting with the social psychologist. -Coordinate care with PCP and send records. Refer for outpatient follow-up with a therapist and psychiatrist. -Every 15 minute checks for safety. 05/04 - Continue cross taper as above. - Family meeting with mother this afternoon. - Referred to [facility] for aftercare. 05/05 - Continue cross taper - Good family meeting with mother - Safety plan completed and reviewed (2) Anxiety Has symptoms of both generalized anxiety and panic, which appear to be secondary to his depression. Work on behavioral techniques for managing anxiety. Cross-taper from sertraline to venlafaxine XR as above. Risk Factors Assessment Male: Yes : Yes /single/: Yes Higher / Fall in social status: No Health problems: No Mental Health Diagnoses: Yes Substance use disorders: Yes Previous attempt: Yes Previous attempt;highly lethal: Yes Family history of suicide: No Previous psychiatric stay: No Hopelessness: Yes Smoker: No Protective Factors Assessment Adventist beliefs: No : No Responsible for young children: No Employed: No Stable relationships: Yes Supportive family: Yes Good rapport with provider: Yes Day of Discharge Assessment COURSE OF HOSPITALIZATION: The patient has been on her unit for 5 days. He was admitted voluntarily with severe depression and suicidal ideation. During his stay Zoloft was discontinued in favor of Effexor, getting to 150 mg daily. He made good use of group and individual counseling. His parents were involved in family meetings. He is a senior, last semester at [employer] and wanted to try to salvage this semester so that he could graduate on time which was supported by his parents. He ceased to have any further suicidal ideation and is requesting discharge today. TRANSITION OF CARE: I have personally reviewed the patient's aftercare appointments and medications. He has been counseled to attend all appointments as scheduled and not to change his medications without consulting with his outpatient psychiatrist. DAY OF DISCHARGE ASSESSMENT: The patient is requesting discharge. He continues to deny any suicidal ideation. He has worked on a safety plan which ultimately includes returning to the emergency room in the event of severe worsening depression. Today he is casually and appropriately dressed and groomed. Gait and station are within normal limits. Eye contact is good. Affect is restricted but able to smile. Speech is of normal rate volume and tone. Thoughts are organized, goal-directed, and without evidence of thought disorder. Recent and remote memory are intact per conversation. Intelligence is estimated to be average. Insight and judgment are improved over admission. Laboratory Test 05/02/17 14:58 05/02/17 15:10 White Blood Count 6.02 Red Blood Count 5.02 Hemoglobin 15.7 Hematocrit 43.7 Mean Corpuscular Volume 87.1 Mean Corpuscular Hemoglobin 31.3 Mean Corpuscular Hemoglobin Concent 35.9 Platelet Count 208 Mean Platelet Volume 9.3 Neutrophils (%) (Auto) 61.1 Lymphocytes (%) (Auto) 30.7 Monocytes (%) (Auto) 4.7 Eosinophils (%) (Auto) 2.5 Basophils (%) (Auto) 0.8 Neutrophils # (Auto) 3.68 Lymphocytes # (Auto) 1.85 Monocytes # (Auto) 0.28 Eosinophils # (Auto) 0.15 Basophils # (Auto) 0.05 RDW Standard Deviation 42.7 RDW Coefficient of Variation 13.4 Immature Granulocyte % (Auto) 0.2 Immature Granulocyte # (Auto) 0.01 Sodium Level 139 Potassium Level 4.0 Chloride Level 104 Carbon Dioxide Level 29 Anion Gap 6.0 Blood Urea Nitrogen 13 Creatinine 0.92 Est Creatinine Clear Calc Drug Dose 110.4 Estimated GFR () 136.4 Estimated GFR (Non- 117.6 BUN/Creatinine Ratio 13.9 Random Glucose 91 Calcium Level 8.9 Total Bilirubin 0.4 Direct Bilirubin < 0.1 Aspartate Amino Transferase (AST) 12 Alanine Aminotransferase (ALT) 16 Alkaline Phosphatase 52 Total Protein 7.4 Albumin 4.4 Thyroid Stimulating Hormone (TSH) 0.910 Ethyl Alcohol mg/dL < 3.0 Urine Color YELLOW Urine Appearance CLEAR Urine pH 7.5 Urine Specific Bruno 1.024 Urine Protein NEG Urine Glucose (UA) NEG Urine Ketones NEG Urine Occult Blood NEG Urine Nitrite NEG Urine Bilirubin NEG Urine Urobilinogen NEG Urine Leukocyte Esterase NEG Urine Opiates Screen NEG Urine Methadone, Qualitative NEG Urine Barbiturates NEG Urine Phencyclidine (PCP) Level NEG Ur Amphetamine/Methamphetamine NEG MDMA (Ecstasy) Screen NEG Urine Benzodiazepines Screen NEG Urine Cocaine Metabolite NEG Urine Marijuana (THC) POS Urine Marijuana (THC Carboxy Acid) 339 Total Time Total Time Spent (min): Greater than 30 minutes Total Time Included: examination of the patient, discharge planning, medication reconciliation, communication with other providers Tobacco Cessation at Discharge Smoking Status: Former Smoker FDA approved Prescription: non-smoker Problem Qualifiers (1) Depression: Depression Type: major depressive disorder Major depression recurrence: recurrent Active/Remission status: currently active Major depression episode severity: severe Psychotic features: without psychotic features Qualified Codes: F33.2 - Major depressive disorder, recurrent severe without psychotic features
[2017-05-08] MEDS ORDERED: VENLAFAXINE HCL XR 150 MG CAPXR PO SCH (09:00)
== END 2017-05-07 10:15 | disposition home or self-care (01) | DRG 885 ==
LOC: C.EDB 14:39 → C.MHU 20:58
PROVIDERS: ADMIT Psychiatry & Neurology Psychiatry; ATTEND Psychiatry & Neurology Psychiatry
DX: F33.2 Major depressive disorder, recurrent severe without psychotic features (principal); R45.851 Suicidal ideations; F39 Unspecified mood [affective] disorder; F12.10 Cannabis abuse, uncomplicated; Z87.891 Personal history of nicotine dependence